=== PATIENT | female | born 1940 | race Caucasian/White ===

== ENCOUNTER 2018-11-22 17:21 | Emergency (ER) | payer BC, MEDICARE ==
[2018-11-22] MEDS ORDERED: Famotidine 20 MG Tab PO ONE (17:41)
--- NOTE | 2018-11-22 17:54 | EDM.PDOC ---
ED HPI GENERAL MEDICAL PROBLEM - General Chief Complaint: Bite:Animal, Insect Stated Complaint: BEE STING Time Seen by Provider: 11/22/18 17:33 Source of Information: Reports: Patient History Limitations: Reports: No Limitations - History of Present Illness INITIAL COMMENTS - FREE TEXT/NARRATIVE: Patient is a 78 y/o female who presents to the E.D. after being stung by a wasp to the right forearm. States since being stung she has developed a redness with raised welt that itches. This occurred just prior to E.D. visit. She denies any allergies to wasp stings. She denies swelling of throat, difficulty swallowing, sob, wheezing, chest pain, redness streaking up her arm or sensory/ motor deficits. Right Arm Pain Score (Numeric/FACES): 3 - Related Data Allergies Allergy/AdvReac Type Severity Reaction Status Date / Time No Known Allergies Allergy Verified 11/22/18 17:31 Home Meds: Home Meds Carvedilol [Coreg] 6.25 mg PO DAILY 11/22/18 [History] Lisinopril 5 mg PO DAILY 11/22/18 [History] Past Medical History Cardiovascular History: Reports: Hypertension [employer] History: Reports: Endocrine/Metabolic History: Reports: Diabetes, Type II Social & Family History - Tobacco Use Smoking Status *Q: Light Tobacco Smoker Years of Tobacco use: 50 Packs/Tins Daily: 0.1 - Caffeine Use Caffeine Use: Reports: Coffee - Recreational Drug Use Recreational Drug Use: No ED ROS GENERAL - Review of Systems Review Of Systems: ROS reveals no pertinent complaints other than HPI. ED EXAM, ANIMAL BITE - Physical Exam Exam: See Below Exam Limited By: No Limitations General Appearance: Alert, WD/WN, No Apparent Distress Eye Exam: Bilateral Eye: Normal Inspection Throat/Mouth: Normal Inspection, Normal Lips, Normal Oropharynx, Normal Voice, No Airway Compromise Head: Atraumatic, Normocephalic Neck: Normal Inspection, Supple Respiratory/Chest: No Respiratory Distress, Lungs Clear, Normal Breath Sounds, No Accessory Muscle Use Cardiovascular: Normal Peripheral Pulses, Regular Rate, Rhythm, No Murmur Peripheral Pulses: 2+: Radial (L), Radial (R) Back Exam: Normal Inspection Extremities: Normal Range of Motion, Non-Tender, No Pedal Edema, Normal Capillary Refill, Other (Approx 4 cm x 4cm area of redness to the right forearm with 1cm raised area centrally from wasp sting. no pain, drainage, or redness streaking up her arm. Minimal swelling. No stinger present. ) Neurological: Alert, Oriented, CN II-XII Intact, Normal Cognition, No Motor/ Sensory Deficits Psychiatric: Normal Affect, Normal Mood Skin Exam: Normal Color, Warm/Dry Course - Vital Signs Last Recorded V/S: Last Vital Signs Temp 98.1 F 11/22/18 17:30 Pulse 61 11/22/18 17:30 Resp 14 11/22/18 17:30 BP 140/67 11/22/18 17:30 Pulse Ox 94 L 11/22/18 17:30 - Orders/Labs/Meds Meds: Medications Discontinued Medications Generic Name Dose Route Start Last Admin Trade Name Irving PRN Reason Stop Dose Admin Famotidine 40 mg 11/22/18 17:41 11/22/18 17:52 Pepcid PO 11/22/18 17:42 40 mg ONETIME ONE Administration - Re-Assessments/Exams Free Text/Narrative Re-Assessment/Exam: Patient has a wasp sting to the right arm with no concerns for anaphylaxis. Ordered pepcid PO. Return precautions discussed with patient. Discharge instructions as documented. Departure - Departure Time of Disposition: 17:42 Disposition: Home, Self-Care 01 Condition: Good Clinical Impression: Wasp sting Qualifiers: Encounter type: initial encounter Injury intent: undetermined intent Qualified Code(s): T63.464A - Toxic effect of venom of wasps, undetermined, initial encounter - Discharge Information Instructions: Insect Bite, Adult, [id number] Referrals: PCP,Not In Area [Primary Care Provider] - Forms: ED Department Discharge Additional Instructions: Apply 1% hydrocortisone twice a day to the affected area for the next 5 to 7 days. May use topical benadryl as well following the manufactures recommendations. The redness should dissipate over the next 24 hrs. If you develop increased redness, swelling, drainage, redness streaking up your arm, fever, or any new/worsening symptoms please return to the E.D. for further evaluation.
== END 2018-11-22 18:06 | disposition home or self-care (01) ==
LOC: JD.ED 17:21
DX: T63.461A Toxic effect of venom of wasps, accidental (unintentional), initial encounter (principal); I10 Essential (primary) hypertension; E11.9 Type 2 diabetes mellitus without complications; F17.210 Nicotine dependence, cigarettes, uncomplicated; Z79.899 Other long term (current) drug therapy
CPT/HCPCS: 99282; A9270

== ENCOUNTER 2022-08-09 09:35 | Emergency (ER) | payer MEDICARE ==
[2022-08-09 10:43] LABS: APPEARANCE,URINE CLEAR (Clear); BILIRUBIN,URINE 1+ (Negative); COLOR,URINE YELLOW (Yellow); GLUCOSE,URINE 1+ (Negative); KETONES,URINE 2+ (Negative); LEUKOCYTE ESTERASE,URINE 1+ (Negative); NITRITE,URINE POSITIVE (Negative); OCCULT BLOOD,URINE TRACE-INTACT (Negative); PROTEIN,URINE 1+ (Negative)
[2022-08-09 11:12] LABS: BACTERIA,URINE MODERATE /hpf (FEW); EPITHELIAL CELLS,URINE 0-5 /hpf (0-5); MUCUS,URINE FEW /hpf (FEW); RBC,URINE 0-5 /hpf (0-5); WBC,URINE 20-30 /hpf (0-5)
[2022-08-09] MEDS ORDERED: HYDROmorphone 1 MG/ML Syringe IVPUSH ONE (11:16)
[2022-08-09] MEDS ORDERED: Ondansetron 4 MG/2 ML SDV IVPUSH ONE (11:16)
[2022-08-09] MEDS: Sodium Chloride 0.9% 10 ML Syringe FLUSH PRN ×2 (11:33→13:21)
[2022-08-09 11:49] LABS: BASOPHILS ABSOLUTE AUTO 0.01 K/mm3 (0.01-0.08); BASOPHILS PERCENT AUTO 0.2 % (0.1-1.2); EOSINOPHILS ABSOLUTE AUTO 0.02 K/mm3 (0.04-0.36); EOSINOPHILS PERCENT AUTO 0.3 (0.7-5.8); HEMATOCRIT 48.8 % (34.1-44.9); LYMPHOCYTES ABSOLUTE AUTO 0.35 K/mm3 (1.18-3.74); LYMPHOCYTES PERCENT AUTO 5.8 % (19.3-51.7); MEAN CORPUSCULAR HEMOGLOBIN 32.3 pg (25.6-32.2); MEAN CORPUSCULAR HGB CONC 32.8 g/dl (32.2-35.5); MEAN CORPUSCULAR VOLUME 98.4 fl (79.4-94.8); MEAN PLATELET VOLUME 11.2 fl (9.4-12.3); MONOCYTES ABSOLUTE AUTO 0.31 K/mm3 (0.24-0.36); MONOCYTES PERCENT AUTO 5.2 % (4.7-12.5); NEUTROPHILS ABSOLUTE AUTO 5.31 K/mm3 (1.56-6.13); NEUTROPHILS PERCENT AUTO 88.5 % (34.0-71.1); PLATELET COUNT,PLT 98 K/mm3 (182-369); RED BLOOD CELL COUNT 4.96 M/mm3 (3.98-5.22)
[2022-08-09] MEDS ORDERED: Sodium Chloride 0.9% 10 ML Syringe FLUSH PRN (12:01)
[2022-08-09] MEDS ORDERED: Iopamidol 612 MG/ML 100 ML Bottle IVPUSH ONE (12:01)
[2022-08-09 12:19] LABS: SLIDE REVIEW ABNORMAL SMEAR
[2022-08-09 13:30] LABS: A/G RATIO 0.9 (1-2); ALBUMIN 3.1 g/dl (3.4-5.0); ANION GAP 12.8 (5-15); BILIRUBIN TOTAL 0.9 mg/dL (0.2-1.0); BUN/CREATININE RATIO 21.3 (14-18); CALCIUM 8.5 mg/dL (8.5-10.1); CREATININE 0.8 mg/dL (0.55-1.02); EST CRCL DRUG DOSING (CG) 48.79 mL/min; POTASSIUM,K 3.8 mEq/L (3.5-5.1); PROTEIN TOTAL,TP 6.7 g/dl (6.4-8.2)
[2022-08-09] MEDS ORDERED: Acetaminophen/HYDROcodone 325-5 MG Tab PO ONE (13:45)
[2022-08-09] MEDS ORDERED: cefTRIAXone 1 GM in Sodium Chloride 0.9% 100 ML IV ONE (13:45)
== END 2022-08-09 15:39 | disposition home or self-care (01) ==
LOC: JD.ED 09:35
DX: S22.41XA Multiple fractures of ribs, right side, initial encounter for closed fracture (principal); N30.00 Acute cystitis without hematuria; I10 Essential (primary) hypertension; E11.9 Type 2 diabetes mellitus without complications; Z79.899 Other long term (current) drug therapy; W19.XXXA Unspecified fall, initial encounter; Y92.009 Unspecified place in unspecified non-institutional (private) residence as the place of occurrence of the external cause
CPT/HCPCS: 36415; 71260; 74177; 80053; 81001; 85025; 87086; 87088; 87186; 96365; 96375; 99285; A9270; J0696; J1170; J2405; J3490; Q9967

== ENCOUNTER 2022-09-02 09:41 | Emergency (ER) | payer MEDICARE ==
[2022-09-02] MEDS ORDERED: Acetaminophen/oxyCODONE 325-5 MG Tab PO ONE (10:57)
[2022-09-02 11:58] LABS: BASOPHILS ABSOLUTE AUTO 0.02 K/mm3 (0.01-0.08); BASOPHILS PERCENT AUTO 0.4 % (0.1-1.2); EOSINOPHILS ABSOLUTE AUTO 0.05 K/mm3 (0.04-0.36); EOSINOPHILS PERCENT AUTO 0.9 (0.7-5.8); HEMATOCRIT 45.6 % (34.1-44.9); HEMOGLOBIN 15.1 gm/dl (11.2-15.7); IMMATURE GRAN ABSOLUTE AUTO 0.01 K/mm3 (0.00-0.10); IMMATURE GRAN PERCENT AUTO 0.2 % (<=1.0); LYMPHOCYTES ABSOLUTE AUTO 0.89 K/mm3 (1.18-3.74); LYMPHOCYTES PERCENT AUTO 16.1 % (19.3-51.7); MEAN CORPUSCULAR HEMOGLOBIN 32.5 pg (25.6-32.2); MEAN CORPUSCULAR HGB CONC 33.1 g/dl (32.2-35.5); MEAN CORPUSCULAR VOLUME 98.1 fl (79.4-94.8); MEAN PLATELET VOLUME 10.2 fl (9.4-12.3); MONOCYTES ABSOLUTE AUTO 0.63 K/mm3 (0.24-0.36); MONOCYTES PERCENT AUTO 11.4 % (4.7-12.5); NEUTROPHILS ABSOLUTE AUTO 3.93 K/mm3 (1.56-6.13); PLATELET COUNT,PLT 127 K/mm3 (182-369); RED BLOOD CELL COUNT 4.65 M/mm3 (3.98-5.22); WHITE BLOOD CELL COUNT,WBC 5.53 K/mm3 (3.98-10.04)
[2022-09-02 12:18] LABS: A/G RATIO 0.9 (1-2); ALANINE AMINOTRANSFERASE,ALT 163 U/L (14-59); ALBUMIN 3.3 g/dl (3.4-5.0); ALKALINE PHOSPHATASE 376 U/L (46-116); ANION GAP 17.6 (5-15); ASPARTATE AMNIOTRANSFERASE,AST 69 U/L (15-37); BILIRUBIN TOTAL 0.7 mg/dL (0.2-1.0); BLOOD UREA NITROGEN,BUN 15 mg/dL (7-18); BUN/CREATININE RATIO 18.8 (14-18); CALCIUM 9.4 mg/dL (8.5-10.1); CARBON DIOXIDE,CO2 22 mEq/L (21-32); CHLORIDE,CL 105 mEq/L (98-107); CREATININE 0.8 mg/dL (0.55-1.02); ESTIMATED GFR 74 mL/min (>60); GLUCOSE RANDOM 144 mg/dL (70-99); POTASSIUM,K 3.6 mEq/L (3.5-5.1); SODIUM,NA 141 mEq/L (136-145)
[2022-09-02 12:36] LABS: APPEARANCE,URINE CLEAR (Clear); BILIRUBIN,URINE 1+ (Negative); COLOR,URINE YELLOW (Yellow); GLUCOSE,URINE 3+ (Negative); KETONES,URINE 2+ (Negative); LEUKOCYTE ESTERASE,URINE NEGATIVE (Negative); NITRITE,URINE NEGATIVE (Negative); OCCULT BLOOD,URINE NEGATIVE (Negative); PROTEIN,URINE TRACE (Negative); UROBILINOGEN,URINE 0.2 (0.2-1.0)
[2022-09-02 12:54] LABS: BACTERIA,URINE FEW /hpf (FEW); HYALINE CASTS,URINE 0-5 /lpf (0-5); RBC,URINE 0-5 /hpf (0-5); SQUAMOUS EPITHELIAL CELLS,UR 0-5 /hpf (0-5); WBC,URINE 0-5 /hpf (0-5)
[2022-09-02 12:55] LABS: MUCUS,URINE FEW /hpf (FEW)
== END 2022-09-02 14:25 | disposition home or self-care (01) ==
LOC: JD.ED 09:41
DX: M48.56XA Collapsed vertebra, not elsewhere classified, lumbar region, initial encounter for fracture (principal); I10 Essential (primary) hypertension; E11.9 Type 2 diabetes mellitus without complications; Z87.891 Personal history of nicotine dependence; Z86.16 Personal history of COVID-19; Z79.899 Other long term (current) drug therapy
CPT/HCPCS: 36415; 72072; 72100; 80053; 81001; 85025; 99284; A9270; 99283

== ENCOUNTER 2022-09-03 11:36 | Inpatient (IN) | payer MEDICARE ==
[2022-09-03] MEDS ORDERED: Acetaminophen/oxyCODONE 325-5 MG Tab PO ONE (12:25)
[2022-09-03 14:01] LABS: INR 1.07; PROTHROMBIN TIME 11.4 SECONDS (9.7-12.0)
[2022-09-03 14:02] LABS: PTT,PARTIAL THROMBOPLSTIN TIME 27.5 SECONDS (21.7-31.4)
[2022-09-03] MEDS ORDERED: Ondansetron 4 MG/2 ML SDV IV PRN (14:03)
[2022-09-03] MEDS ORDERED: HYDROmorphone 0.5 MG/0.5 ML Syringe IVPUSH PRN (14:03)
[2022-09-03 14:07] LABS: A/G RATIO 0.8 (1-2); ALBUMIN 3.1 g/dl (3.4-5.0); ANION GAP 17.3 (5-15); BILIRUBIN TOTAL 1.1 mg/dL (0.2-1.0); BUN/CREATININE RATIO 16.3 (14-18); CALCIUM 9.1 mg/dL (8.5-10.1); CREATININE 0.8 mg/dL (0.55-1.02); EST CRCL DRUG DOSING (CG) 52.72 mL/min; MAGNESIUM 1.6 mg/dL (1.8-2.4); POTASSIUM,K 3.3 mEq/L (3.5-5.1); PROTEIN TOTAL,TP 7.1 g/dl (6.4-8.2)
[2022-09-03] MEDS: oxyCODONE 5 MG Tab PO PRN ×2 (14:54→21:25)
[2022-09-03 15:10] LABS: HEMOGLOBIN A1C 7.6 %
[2022-09-03] MEDS ORDERED: Potassium Chloride 20 MEQ Tab.ER PO ONE (15:30)
[2022-09-03] MEDS ORDERED: Magnesium Sulfate/Water 2 GM in Premix Bag 1 BAG IV ONE (15:30)
[2022-09-03] MEDS ORDERED: Ketorolac 30 MG/ML SDV IVPUSH ONE (16:00)
[2022-09-03] MEDS: Acetaminophen 325 MG Tab PO SCH ×2 (16:01→21:25)
[2022-09-03] MEDS: Enoxaparin 40 MG/0.4 ML Syringe SUBCUT SCH (16:18)
[2022-09-03] MEDS: Lidocaine 4% 1 each Patch TOP SCH (16:18)
[2022-09-03] MEDS: Calcium Carbonate 600 MG Tab PO SCH (16:18)
[2022-09-03] MEDS: Cholecalciferol (Vitamin D3) 5,000 UNIT Cap PO SCH (16:18)
[2022-09-03] MEDS: Nystatin Topical Powder 15 GM Bottle TOP SCH ×2 (16:19→21:24)
[2022-09-03] MEDS: Metoprolol Tartrate 25 MG Tab PO SCH ×2 (16:20→21:26)
[2022-09-03] MEDS: Insulin Lispro 100 Unit/ML 3 ML KwikPen SUBCUT SCH ×2 (17:19→21:26)
[2022-09-03] MEDS ORDERED: Ketorolac 30 MG/ML SDV IVPUSH PRN (17:57)
[2022-09-04] MEDS: oxyCODONE 5 MG Tab PO PRN ×3 (05:31→17:24)
[2022-09-04 06:25] LABS: BASOPHILS ABSOLUTE AUTO 0.02 K/mm3 (0.01-0.08); BASOPHILS PERCENT AUTO 0.4 % (0.1-1.2); EOSINOPHILS ABSOLUTE AUTO 0.04 K/mm3 (0.04-0.36); EOSINOPHILS PERCENT AUTO 0.7 (0.7-5.8); HEMOGLOBIN 14.5 gm/dl (11.2-15.7); IMMATURE GRAN ABSOLUTE AUTO 0.01 K/mm3 (0.00-0.10); IMMATURE GRAN PERCENT AUTO 0.2 % (<=1.0); LYMPHOCYTES ABSOLUTE AUTO 0.67 K/mm3 (1.18-3.74); LYMPHOCYTES PERCENT AUTO 12.1 % (19.3-51.7); MEAN CORPUSCULAR HEMOGLOBIN 32.5 pg (25.6-32.2); MEAN CORPUSCULAR VOLUME 98.7 fl (79.4-94.8); MONOCYTES ABSOLUTE AUTO 0.56 K/mm3 (0.24-0.36); MONOCYTES PERCENT AUTO 10.1 % (4.7-12.5); NEUTROPHILS ABSOLUTE AUTO 4.26 K/mm3 (1.56-6.13); NEUTROPHILS PERCENT AUTO 76.5 % (34.0-71.1); PLATELET COUNT,PLT 126 K/mm3 (182-369); RED BLOOD CELL COUNT 4.46 M/mm3 (3.98-5.22); WHITE BLOOD CELL COUNT,WBC 5.56 K/mm3 (3.98-10.04)
[2022-09-04 06:57] LABS: A/G RATIO 0.7 (1-2); ALBUMIN 2.9 g/dl (3.4-5.0); ANION GAP 13.5 (5-15); BILIRUBIN TOTAL 2.8 mg/dL (0.2-1.0); BUN/CREATININE RATIO 22.7 (14-18); CALCIUM 9.8 mg/dL (8.5-10.1); CREATININE 1.1 mg/dL (0.55-1.02); EST CRCL DRUG DOSING (CG) 38.34 mL/min; POTASSIUM,K 3.5 mEq/L (3.5-5.1); PROTEIN TOTAL,TP 6.8 g/dl (6.4-8.2)
[2022-09-04] MEDS: Insulin Lispro 100 Unit/ML 3 ML KwikPen SUBCUT SCH ×4 (08:16→21:43)
[2022-09-04] MEDS: Enoxaparin 40 MG/0.4 ML Syringe SUBCUT SCH (08:17)
[2022-09-04] MEDS: Latanoprost 0.005% Ophth Soln 2.5 ML Bottle EYEBOTH SCH (08:17)
[2022-09-04] MEDS: Nystatin Topical Powder 15 GM Bottle TOP SCH ×2 (08:18→21:16)
[2022-09-04] MEDS: Lidocaine 4% 1 each Patch TOP SCH (08:18)
[2022-09-04] MEDS: Cholecalciferol (Vitamin D3) 5,000 UNIT Cap PO SCH (08:20)
[2022-09-04] MEDS: Calcium Carbonate 600 MG Tab PO SCH (08:20)
[2022-09-04] MEDS: Acetaminophen 325 MG Tab PO PRN ×2 (08:21→21:15)
[2022-09-04] MEDS: Metoprolol Tartrate 25 MG Tab PO SCH ×2 (08:22→20:56)
[2022-09-04] MEDS ORDERED: Docusate Sodium 100 MG Cap PO SCH (09:00)
[2022-09-04] MEDS: HYDROmorphone 0.5 MG/0.5 ML Syringe IVPUSH PRN (18:17)
[2022-09-05] MEDS: HYDROmorphone 0.5 MG/0.5 ML Syringe IVPUSH PRN (02:09)
[2022-09-05] MEDS: Acetaminophen 325 MG Tab PO PRN ×4 (04:31→18:06)
[2022-09-05 06:26] LABS: BASOPHILS ABSOLUTE AUTO 0.02 K/mm3 (0.01-0.08); BASOPHILS PERCENT AUTO 0.4 % (0.1-1.2); EOSINOPHILS ABSOLUTE AUTO 0.06 K/mm3 (0.04-0.36); EOSINOPHILS PERCENT AUTO 1.3 (0.7-5.8); HEMOGLOBIN 13.2 gm/dl (11.2-15.7); IMMATURE GRAN ABSOLUTE AUTO 0.01 K/mm3 (0.00-0.10); IMMATURE GRAN PERCENT AUTO 0.2 % (<=1.0); LYMPHOCYTES ABSOLUTE AUTO 0.68 K/mm3 (1.18-3.74); LYMPHOCYTES PERCENT AUTO 14.5 % (19.3-51.7); MEAN CORPUSCULAR HEMOGLOBIN 32.8 pg (25.6-32.2); MEAN CORPUSCULAR VOLUME 99.5 fl (79.4-94.8); MEAN PLATELET VOLUME 10.7 fl (9.4-12.3); MONOCYTES ABSOLUTE AUTO 0.53 K/mm3 (0.24-0.36); MONOCYTES PERCENT AUTO 11.3 % (4.7-12.5); NEUTROPHILS ABSOLUTE AUTO 3.38 K/mm3 (1.56-6.13); NEUTROPHILS PERCENT AUTO 72.3 % (34.0-71.1); PLATELET COUNT,PLT 156 K/mm3 (182-369); RED BLOOD CELL COUNT 4.02 M/mm3 (3.98-5.22); WHITE BLOOD CELL COUNT,WBC 4.68 K/mm3 (3.98-10.04)
[2022-09-05 06:52] LABS: A/G RATIO 0.7 (1-2); ALBUMIN 2.6 g/dl (3.4-5.0); ANION GAP 12.6 (5-15); BILIRUBIN TOTAL 1.9 mg/dL (0.2-1.0); BUN/CREATININE RATIO 26.7 (14-18); CALCIUM 9.6 mg/dL (8.5-10.1); CREATININE 0.9 mg/dL (0.55-1.02); EST CRCL DRUG DOSING (CG) 43.3 mL/min; MAGNESIUM 1.9 mg/dL (1.8-2.4); POTASSIUM,K 3.6 mEq/L (3.5-5.1); PROTEIN TOTAL,TP 6.5 g/dl (6.4-8.2)
[2022-09-05 07:50] LABS: BILIRUBIN DIRECT 1.2 mg/dl (0.0-0.2)
[2022-09-05] MEDS: Enoxaparin 40 MG/0.4 ML Syringe SUBCUT SCH (08:07)
[2022-09-05] MEDS: Insulin Lispro 100 Unit/ML 3 ML KwikPen SUBCUT SCH ×4 (08:07→22:01)
[2022-09-05] MEDS: Latanoprost 0.005% Ophth Soln 2.5 ML Bottle EYEBOTH SCH (08:07)
[2022-09-05] MEDS: Lidocaine 4% 1 each Patch TOP SCH (08:09)
[2022-09-05] MEDS: Cholecalciferol (Vitamin D3) 5,000 UNIT Cap PO SCH (08:09)
[2022-09-05] MEDS: Calcium Carbonate 600 MG Tab PO SCH (08:09)
[2022-09-05] MEDS: oxyCODONE 5 MG Tab PO PRN ×4 (08:14→22:01)
[2022-09-05] MEDS: Metoprolol Tartrate 50 MG Tab PO SCH ×2 (08:15→20:10)
[2022-09-05] MEDS: Nystatin Topical Powder 15 GM Bottle TOP SCH ×2 (08:19→20:10)
[2022-09-06] MEDS: oxyCODONE 5 MG Tab PO PRN ×4 (04:31→23:28)
[2022-09-06 07:07] LABS: A/G RATIO 0.7 (1-2); ALBUMIN 2.6 g/dl (3.4-5.0); ANION GAP 11.9 (5-15); BILIRUBIN TOTAL 1.6 mg/dL (0.2-1.0); BUN/CREATININE RATIO 24.3 (14-18); CALCIUM 9.7 mg/dL (8.5-10.1); CREATININE 0.7 mg/dL (0.55-1.02); EST CRCL DRUG DOSING (CG) 55.76 mL/min; MAGNESIUM 1.7 mg/dL (1.8-2.4); POTASSIUM,K 3.9 mEq/L (3.5-5.1); PROTEIN TOTAL,TP 6.4 g/dl (6.4-8.2)
[2022-09-06] MEDS: Enoxaparin 40 MG/0.4 ML Syringe SUBCUT SCH (10:09)
[2022-09-06] MEDS: Insulin Lispro 100 Unit/ML 3 ML KwikPen SUBCUT SCH ×4 (10:10→20:50)
[2022-09-06] MEDS: Latanoprost 0.005% Ophth Soln 2.5 ML Bottle EYEBOTH SCH (10:10)
[2022-09-06] MEDS: Metoprolol Tartrate 50 MG Tab PO SCH ×2 (10:11→20:44)
[2022-09-06] MEDS: Lidocaine 4% 1 each Patch TOP SCH (10:11)
[2022-09-06] MEDS: Cholecalciferol (Vitamin D3) 5,000 UNIT Cap PO SCH (10:11)
[2022-09-06] MEDS: Calcium Carbonate 600 MG Tab PO SCH (10:11)
[2022-09-06] MEDS: Nystatin Topical Powder 15 GM Bottle TOP SCH ×2 (10:12→20:45)
[2022-09-06] MEDS: Acetaminophen 325 MG Tab PO PRN ×3 (10:16→18:41)
[2022-09-06] MEDS: Polyethylene Glycol 3350 Powder 17 GM Packet PO PRN (10:17)
[2022-09-06] MEDS: Docusate Sodium 100 MG Cap PO PRN ×2 (10:17→20:45)
[2022-09-06] MEDS ORDERED: Magnesium Sulfate/Water 2 GM in Premix Bag 1 BAG IV ONE (11:30)
[2022-09-07] MEDS: oxyCODONE 5 MG Tab PO PRN ×4 (04:54→20:53)
[2022-09-07 05:47] LABS: A/G RATIO 0.7 (1-2); ALBUMIN 2.7 g/dl (3.4-5.0); ANION GAP 11.9 (5-15); BILIRUBIN TOTAL 1.3 mg/dL (0.2-1.0); CALCIUM 9.4 mg/dL (8.5-10.1); CREATININE 0.6 mg/dL (0.55-1.02); EST CRCL DRUG DOSING (CG) 65.05 mL/min; MAGNESIUM 1.8 mg/dL (1.8-2.4); POTASSIUM,K 3.9 mEq/L (3.5-5.1); PROTEIN TOTAL,TP 6.7 g/dl (6.4-8.2)
[2022-09-07] MEDS: Lidocaine 4% 1 each Patch TOP SCH (08:21)
[2022-09-07] MEDS: Metoprolol Tartrate 50 MG Tab PO SCH ×2 (08:21→20:53)
[2022-09-07] MEDS: Enoxaparin 40 MG/0.4 ML Syringe SUBCUT SCH (08:21)
[2022-09-07] MEDS: Calcium Carbonate 600 MG Tab PO SCH (08:21)
[2022-09-07] MEDS: Acetaminophen 325 MG Tab PO PRN (08:22)
[2022-09-07] MEDS: Cholecalciferol (Vitamin D3) 5,000 UNIT Cap PO SCH (08:23)
[2022-09-07] MEDS: Nystatin Topical Powder 15 GM Bottle TOP SCH ×2 (08:23→20:54)
[2022-09-07] MEDS: Docusate Sodium 100 MG Cap PO PRN (08:23)
[2022-09-07] MEDS: Latanoprost 0.005% Ophth Soln 2.5 ML Bottle EYEBOTH SCH (08:23)
[2022-09-07] MEDS: Insulin Lispro 100 Unit/ML 3 ML KwikPen SUBCUT SCH ×4 (08:24→20:53)
[2022-09-07] MEDS: Polyethylene Glycol 3350 Powder 17 GM Packet PO PRN (16:51)
[2022-09-07] MEDS ORDERED: traZODone 50 MG Tab PO PRN (20:43)
[2022-09-08 05:28] LABS: BASOPHILS ABSOLUTE AUTO 0.02 K/mm3 (0.01-0.08); BASOPHILS PERCENT AUTO 0.4 % (0.1-1.2); EOSINOPHILS ABSOLUTE AUTO 0.04 K/mm3 (0.04-0.36); EOSINOPHILS PERCENT AUTO 0.9 (0.7-5.8); HEMATOCRIT 43.9 % (34.1-44.9); HEMOGLOBIN 14.4 gm/dl (11.2-15.7); IMMATURE GRAN ABSOLUTE AUTO 0.01 K/mm3 (0.00-0.10); IMMATURE GRAN PERCENT AUTO 0.2 % (<=1.0); LYMPHOCYTES ABSOLUTE AUTO 0.68 K/mm3 (1.18-3.74); LYMPHOCYTES PERCENT AUTO 14.8 % (19.3-51.7); MEAN CORPUSCULAR HGB CONC 32.8 g/dl (32.2-35.5); MEAN CORPUSCULAR VOLUME 100.5 fl (79.4-94.8); MEAN PLATELET VOLUME 9.8 fl (9.4-12.3); MONOCYTES ABSOLUTE AUTO 0.85 K/mm3 (0.24-0.36); MONOCYTES PERCENT AUTO 18.5 % (4.7-12.5); NEUTROPHILS ABSOLUTE AUTO 2.99 K/mm3 (1.56-6.13); NEUTROPHILS PERCENT AUTO 65.2 % (34.0-71.1); PLATELET COUNT,PLT 155 K/mm3 (182-369); RED BLOOD CELL COUNT 4.37 M/mm3 (3.98-5.22); WHITE BLOOD CELL COUNT,WBC 4.59 K/mm3 (3.98-10.04)
[2022-09-08 05:57] LABS: A/G RATIO 0.6 (1-2); ALBUMIN 2.8 g/dl (3.4-5.0); ANION GAP 10.5 (5-15); BILIRUBIN TOTAL 1.2 mg/dL (0.2-1.0); BUN/CREATININE RATIO 18.8 (14-18); CALCIUM 9.7 mg/dL (8.5-10.1); CREATININE 0.8 mg/dL (0.55-1.02); EST CRCL DRUG DOSING (CG) 48.79 mL/min; MAGNESIUM 1.9 mg/dL (1.8-2.4); POTASSIUM,K 4.5 mEq/L (3.5-5.1); PROTEIN TOTAL,TP 7.3 g/dl (6.4-8.2)
[2022-09-08] MEDS: oxyCODONE 5 MG Tab PO PRN ×2 (08:17→16:33)
[2022-09-08] MEDS: Metoprolol Tartrate 50 MG Tab PO SCH ×2 (08:19→20:12)
[2022-09-08] MEDS: Enoxaparin 40 MG/0.4 ML Syringe SUBCUT SCH (08:19)
[2022-09-08] MEDS: Calcium Carbonate 600 MG Tab PO SCH (08:19)
[2022-09-08] MEDS: Cholecalciferol (Vitamin D3) 5,000 UNIT Cap PO SCH (08:19)
[2022-09-08] MEDS: Insulin Lispro 100 Unit/ML 3 ML KwikPen SUBCUT SCH ×4 (08:19→20:11)
[2022-09-08] MEDS: Lidocaine 4% 1 each Patch TOP SCH (08:20)
[2022-09-08] MEDS: Nystatin Topical Powder 15 GM Bottle TOP SCH ×2 (08:20→20:11)
[2022-09-08] MEDS: Latanoprost 0.005% Ophth Soln 2.5 ML Bottle EYEBOTH SCH (08:20)
[2022-09-08] MEDS: Ibuprofen 600 MG Tab PO PRN ×2 (13:00→20:12)
[2022-09-08] MEDS: Docusate Sodium 100 MG Cap PO PRN (15:09)
[2022-09-08] MEDS: Polyethylene Glycol 3350 Powder 17 GM Packet PO PRN (15:10)
[2022-09-08] MEDS: Acetaminophen 325 MG Tab PO PRN (16:34)
[2022-09-08] MEDS ORDERED: traZODone 50 MG Tab PO PRN (19:56)
[2022-09-09 05:27] LABS: BASOPHILS ABSOLUTE AUTO 0.02 K/mm3 (0.01-0.08); BASOPHILS PERCENT AUTO 0.4 % (0.1-1.2); EOSINOPHILS ABSOLUTE AUTO 0.08 K/mm3 (0.04-0.36); EOSINOPHILS PERCENT AUTO 1.6 (0.7-5.8); HEMATOCRIT 41.7 % (34.1-44.9); IMMATURE GRAN ABSOLUTE AUTO 0.01 K/mm3 (0.00-0.10); IMMATURE GRAN PERCENT AUTO 0.2 % (<=1.0); LYMPHOCYTES ABSOLUTE AUTO 0.68 K/mm3 (1.18-3.74); LYMPHOCYTES PERCENT AUTO 13.5 % (19.3-51.7); MEAN CORPUSCULAR HEMOGLOBIN 33.5 pg (25.6-32.2); MEAN CORPUSCULAR HGB CONC 33.6 g/dl (32.2-35.5); MEAN CORPUSCULAR VOLUME 99.8 fl (79.4-94.8); MONOCYTES ABSOLUTE AUTO 0.62 K/mm3 (0.24-0.36); MONOCYTES PERCENT AUTO 12.4 % (4.7-12.5); NEUTROPHILS ABSOLUTE AUTO 3.61 K/mm3 (1.56-6.13); NEUTROPHILS PERCENT AUTO 71.9 % (34.0-71.1); PLATELET COUNT,PLT 160 K/mm3 (182-369); RED BLOOD CELL COUNT 4.18 M/mm3 (3.98-5.22); WHITE BLOOD CELL COUNT,WBC 5.02 K/mm3 (3.98-10.04)
[2022-09-09 05:56] LABS: A/G RATIO 0.6 (1-2); ALBUMIN 2.7 g/dl (3.4-5.0); ANION GAP 8.8 (5-15); BUN/CREATININE RATIO 22.5 (14-18); CALCIUM 9.7 mg/dL (8.5-10.1); CREATININE 0.8 mg/dL (0.55-1.02); EST CRCL DRUG DOSING (CG) 48.79 mL/min; POTASSIUM,K 3.8 mEq/L (3.5-5.1); PROTEIN TOTAL,TP 7.1 g/dl (6.4-8.2)
[2022-09-09] MEDS: oxyCODONE 5 MG Tab PO PRN ×3 (05:58→23:25)
[2022-09-09] MEDS: Ibuprofen 600 MG Tab PO PRN ×2 (07:51→13:52)
[2022-09-09] MEDS: Insulin Lispro 100 Unit/ML 3 ML KwikPen SUBCUT SCH ×4 (07:53→21:02)
[2022-09-09] MEDS: Cholecalciferol (Vitamin D3) 5,000 UNIT Cap PO SCH (08:05)
[2022-09-09] MEDS: Latanoprost 0.005% Ophth Soln 2.5 ML Bottle EYEBOTH SCH (08:05)
[2022-09-09] MEDS: Nystatin Topical Powder 15 GM Bottle TOP SCH ×2 (08:05→20:59)
[2022-09-09] MEDS: Calcium Carbonate 600 MG Tab PO SCH (08:05)
[2022-09-09] MEDS: Enoxaparin 40 MG/0.4 ML Syringe SUBCUT SCH (08:05)
[2022-09-09] MEDS: Lidocaine 4% 1 each Patch TOP SCH (08:05)
[2022-09-09] MEDS: Metoprolol Tartrate 50 MG Tab PO SCH ×2 (08:06→20:58)
[2022-09-09] MEDS: Polyethylene Glycol 3350 Powder 17 GM Packet PO PRN (10:33)
[2022-09-09] MEDS: Sennosides/Docusate Sodium 50-8.6 MG Tab PO SCH ×2 (10:34→21:04)
[2022-09-09] MEDS ORDERED: HYDROmorphone 0.5 MG/0.5 ML Syringe IVPUSH ONE (15:21)
[2022-09-09] MEDS: QUEtiapine 25 MG Tab PO SCH (20:57)
[2022-09-10] MEDS: Insulin Lispro 100 Unit/ML 3 ML KwikPen SUBCUT SCH ×4 (10:23→21:17)
[2022-09-10] MEDS: Cholecalciferol (Vitamin D3) 5,000 UNIT Cap PO SCH (10:24)
[2022-09-10] MEDS: Latanoprost 0.005% Ophth Soln 2.5 ML Bottle EYEBOTH SCH (10:24)
[2022-09-10] MEDS: Enoxaparin 40 MG/0.4 ML Syringe SUBCUT SCH (10:24)
[2022-09-10] MEDS: Calcium Carbonate 600 MG Tab PO SCH (10:24)
[2022-09-10] MEDS: oxyCODONE 5 MG Tab PO PRN ×2 (10:25→20:58)
[2022-09-10] MEDS: Metoprolol Tartrate 50 MG Tab PO SCH ×2 (10:25→20:59)
[2022-09-10] MEDS: Docusate Sodium 100 MG Cap PO SCH ×2 (10:26→20:58)
[2022-09-10] MEDS: Lidocaine 4% 1 each Patch TOP SCH (10:26)
[2022-09-10] MEDS: Nystatin Topical Powder 15 GM Bottle TOP SCH ×2 (11:56→21:03)
[2022-09-10] MEDS: Timolol Maleate 0.5% Ophth Soln 5 ML Bottle EYEBOTH SCH (11:57)
[2022-09-10] MEDS: Ibuprofen 600 MG Tab PO PRN (12:35)
[2022-09-10] MEDS: Acetaminophen 325 MG Tab PO PRN (12:36)
[2022-09-10] MEDS: Topiramate 25 MG Tab PO SCH (20:58)
[2022-09-10] MEDS: QUEtiapine 25 MG Tab PO SCH (20:59)
[2022-09-11] MEDS: oxyCODONE 5 MG Tab PO PRN (05:24)
[2022-09-11] MEDS: Ibuprofen 600 MG Tab PO PRN (05:59)
[2022-09-11] MEDS: Insulin Lispro 100 Unit/ML 3 ML KwikPen SUBCUT SCH ×2 (08:03→11:11)
[2022-09-11] MEDS: Lidocaine 4% 1 each Patch TOP SCH (08:06)
[2022-09-11] MEDS: Calcium Carbonate 600 MG Tab PO SCH (08:06)
[2022-09-11] MEDS: Metoprolol Tartrate 50 MG Tab PO SCH (08:07)
[2022-09-11] MEDS: Docusate Sodium 100 MG Cap PO SCH (08:07)
[2022-09-11] MEDS: Enoxaparin 40 MG/0.4 ML Syringe SUBCUT SCH (08:08)
[2022-09-11] MEDS: Cholecalciferol (Vitamin D3) 5,000 UNIT Cap PO SCH (08:08)
[2022-09-11] MEDS: Nystatin Topical Powder 15 GM Bottle TOP SCH (08:08)
[2022-09-11] MEDS: Topiramate 25 MG Tab PO SCH (08:08)
[2022-09-11] MEDS: Timolol Maleate 0.5% Ophth Soln 5 ML Bottle EYEBOTH SCH (08:09)
[2022-09-11] MEDS ORDERED: Insulin Glargine,Human Rec. Analog 100 Units/ML 3 ML Pen SUBCUT SCH (09:00)
[2022-09-11] MEDS ORDERED: Latanoprost 0.005% Ophth Soln 2.5 ML Bottle EYEBOTH SCH (21:00)
== END 2022-09-11 12:30 | DRG 309 ==
LOC: JD.ED 11:36 → JD.MS 13:46
PROVIDERS: ADMIT Internal Medicine; ATTEND Internal Medicine
DX: M48.56XA Collapsed vertebra, not elsewhere classified, lumbar region, initial encounter for fracture (principal); I48.91 Unspecified atrial fibrillation; E11.9 Type 2 diabetes mellitus without complications; N39.0 Urinary tract infection, site not specified; Z79.899 Other long term (current) drug therapy; S32.030D Wedge compression fracture of third lumbar vertebra, subsequent encounter for fracture with routine healing; I10 Essential (primary) hypertension; E87.6 Hypokalemia; E83.42 Hypomagnesemia; R74.01 Elevation of levels of liver transaminase levels; Z20.822 Contact with and (suspected) exposure to COVID-19; E88.09 Other disorders of plasma-protein metabolism, not elsewhere classified; Z74.1 Need for assistance with personal care; E11.65 Type 2 diabetes mellitus with hyperglycemia; R09.02 Hypoxemia; F03.B0 Unspecified dementia, moderate, without behavioral disturbance, psychotic disturbance, mood disturbance, and anxiety; Z66 Do not resuscitate; Z86.16 Personal history of COVID-19; Z90.89 Acquired absence of other organs; Z90.49 Acquired absence of other specified parts of digestive tract; W18.30XD Fall on same level, unspecified, subsequent encounter
CPT/HCPCS: 36415; 80053; 83036; 83735; 84443; 84484; 85610; 85730; 93005; 99285; A9270; 76705; 76705-26; 82248; 82947; 82977; 85025; 92523-GN; 93010; 93307; 94760; 94761; 97110-GP; 97116-GP; 97162-GP; 97166-GO; 97530-GP; J1170; J1650; J1815; J1815-GY; J1885; J3475; Q3014; U0002